=== PATIENT | male | born 1955 | race Hispanic/Latino ===

== ENCOUNTER 2017-10-23 20:34 | Emergency (ER) | payer OTHER ==
[~2017-10-23] VITALS: Ht 180.3 cm; Wt 97.1 kg
--- NOTE | 2017-10-23 21:02 | ED AMS/SEIZURE/WEAK/DIZZY ---
History of Present Illness General Chief Complaint: General Adult Stated Complaint: "DONT FEEL GOOD BLOOD PRESSURE 114/71" Source: patient Exam Limitations: no limitations Vital Signs & Intake/Output Vital Signs & Intake/Output Vital Signs Date Time Temp Pulse Resp B/P B/P Pulse O2 O2 Flow FiO2 Mean Ox Delivery Rate 10/23 2134 98.3 72 18 117/72 98 Room Air 10/23 2036 99.4 72 18 131/87 95 Room Air Allergies Coded Allergies: No Known Allergies (10/23/17) Reconcile Medications Ondansetron HCl (Zofran) 4 MG TABLET 1 TAB PO Q6-8P PRN NAUSEA Triage Note: PT TO TRIAGE C/O LEG HEAVINESS AND GENERALLY "NOT FEELING WELL." PT STATES DOCTOR CHANGED BP MEDICATIONS LAST WEEK. TAKES AMLODIPINE AND LISINOPRIL. PT NORMOTENSIVE IN TRIAGE. Triage Nurses Notes Reviewed? 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 Patient states that he was able to tolerate p.o. today Patient states that last week was advised to increase his dose of amlodipine from 5 mg to 10 mg denies any other new medications taken Has associated symptoms of tactile fevers Denies any headache neck pain sore throat ear pain cough chest pain arm pain jaw pain abdominal pain or change in frequency of urination or testicular pain or swelling. Denies any recent tick bites or rash Denies any similar sick contacts (John Ayala) Past History Travel History Traveled to [place] past 21 day No Medical History Any Pertinent Medical History? see below for history Neurological: NONE EENT: NONE Cardiovascular: hypertension, hyperlipidemia Respiratory: NONE Gastrointestinal: GERD Hepatic: NONE Renal: NONE Musculoskeletal: NONE Psychiatric: NONE Endocrine: NONE Blood Disorders: NONE Cancer(s): NONE ORE SAMPLER/Reproductive: NONE Other Medical Hx: CVA Surgical History Surgical History: non-contributory Psychosocial History What is your primary language Uzbek Tobacco Use: Never used ETOH Use: denies use Family History Hx Contributory? No (John Ayala) Review of Systems Review of Systems Constitutional: Reports: see HPI, fever, weakness. EENTM: Reports: no symptoms. Respiratory: Reports: no symptoms. Cardiovascular: Reports: no symptoms. GI: Reports: see HPI, nausea. Genitourinary: Reports: no symptoms. Musculoskeletal: Reports: see HPI, muscle pain. Skin: Reports: no symptoms. Neurological/Psychological: Reports: no symptoms. Hematologic/Endocrine: Reports: no symptoms. Immunologic/Allergic: Reports: no symptoms. All Other Systems: Reviewed and Negative (John Ayala) Physical Exam Physical Exam General Appearance: no apparent distress, alert, comfortable Head: atraumatic Eyes: Bilateral: normal appearance, PERRL, EOMI. Ears, Nose, Throat: normal pharynx, normal ENT inspection, hearing grossly normal Neck: normal inspection Respiratory: normal breath sounds, chest non-tender, no respiratory distress Cardiovascular: regular rate/rhythm Gastrointestinal: normal bowel sounds, soft, non-tender Back: normal inspection, no vertebral tenderness Extremities: normal range of motion Neurologic/Psych: no motor/sensory deficits, awake, alert, oriented x 3, normal gait, normal mood/affect Skin: intact, normal color, warm/dry Core Measures ACS in differential dx? No CVA/TIA Diagnosis No Sepsis Present: No Sepsis Focused Exam Completed? No (John Ayala) Progress Differential Diagnosis: arrythmia, anemia, benign positional vertigo, CVA/stroke , dehydration, drug intoxication, encephalitis, electrolyte imbalance, GI bleed, hypoglycemia, hypoxia, intracranial Hem., intracranial mass/tumor, labrynthitis, meningitis, Meniere's disease, migraine MAKI, multiple sclerosis, pneumonia, postural hypotension, presyncope, sepsis, seizure disorder, subarachnoid Hem., UTI/pyelo, vertebrobasilar insuff Plan of Care: Orders Procedure Date/time Status LYME TITRE 10/23 2105 Active MISTAKE 10/23 2102 Active TROPONIN LEVEL 10/23 2102 Complete MAGNESIUM 10/23 2102 Complete COMPREHENSIVE METABOLIC PANEL 10/23 2102 Complete CBC WITHOUT DIFFERENTIAL 10/23 2102 Complete EKG 10/23 2102 Active Laboratory Tests 10/23/172121: Anion Gap 11, Estimated GFR > 60, BUN/Creatinine Ratio 19.1, Glucose 105 H, Calcium 8.8, Magnesium 2.1, Total Bilirubin 0.5, AST 85 H, ALT 96 H, Alkaline Phosphatase 126, Troponin I < 0.01, Total Protein 7.2, Albumin 4.1, Globulin 3.1 , Albumin/Globulin Ratio 1.3, CBC w Diff NO MAN DIFF REQ, RBC 4.21 L, MCV 89.9, MCH 30.5, MCHC 33.9, RDW 14.5, MPV 7.5, Gran % 72.0, Lymphocytes % 14.6 L, Monocytes % 12.7 H, Eosinophils % 0.4, Basophils % 0.3, Absolute Granulocytes 4.0, Absolute Lymphocytes 0.8 L, Absolute Monocytes 0.7 H, Absolute Eosinophils 0, Absolute Basophils 0, Lyme Disease Antibody Pending Patient upon initial presentation had a low-grade fever however unremarkable physical exam findings nontender abdomen and clear lungs auscultation unremarkable ENT exam Patient had negative orthostasis Patient afebrile Patient had unremarkable blood work EKG and troponin. Discussed disposition plan with patient who agrees and has no questions nausea has resolved with Zofran Initial ED EKG: normal intervals, normal p-waves, normal QRS complex (John Ayala) Departure Departure Disposition: HOME OR SELF CARE Condition: Stable Clinical Impression Primary Impression: Dizziness Secondary Impressions: Nausea, Weakness Referrals: Stacia LILLY,Ishaan Felipe (PCP/Family) Additional Instructions: As discussed begin drinking plenty of water for hydration if symptoms worsen or if you develop any new concerning symptom return to emergency room if no better in 2 days follow-up with your doctor begin the prescription of Zofran for nausea. Prescriptions waiting at [facility] Please provide your doctor with copies of blood work provided to YOU IN the emergency room Departure Forms: Customer Survey General Discharge Information Prescriptions: Current Visit Scripts Ondansetron HCl (Zofran) 1 TAB PO Q6-8P PRN NAUSEA #10 TAB (John Ayala) PA/COMMERCIAL ESTIMATOR Co-Sign Statement Statement: ED Attending supervision documentation- [] I saw and evaluated the patient. I have also reviewed all the pertinent lab results and diagnostic results. I agree with the findings and the plan of care as documented in the PA's/COMMERCIAL ESTIMATOR's documentation. [X] I have reviewed the ED Record and agree with the PA's/COMMERCIAL ESTIMATOR's documentation. [] Additions or exceptions (if any) to the PAs/COMMERCIAL ESTIMATOR's note and plan are summarized below: [] (Whit LILLY,Fransisco Camejo)
[2017-10-23 21:33] LABS: ABSOLUTE BASOPHIL COUNT 0 /CUMM (0.0-0.2); ABSOLUTE EOSINOPHIL COUNT 0 /CUMM (0.0-0.7); ABSOLUTE LYMPH COUNT 0.8 /CUMM (1.2-3.4); ABSOLUTE MONOCYTE COUNT 0.7 /CUMM (0.10-0.60); BASOPHIL % 0.3 % (0.0-2.0); EOSINOPHIL % 0.4 % (0-5); HEMATOCRIT 37.9 % (42-52); MEAN CORPUSCULAR HGB 30.5 PG (27.0-31.0); MEAN CORPUSCULAR HGB CONC 33.9 G/DL (33.0-37.0); MEAN CORPUSCULAR VOLUME 89.9 FL (80.0-94.0); MEAN PLATELET VOLUME 7.5 FL (7.4-10.4); PLATELET COUNT 176 /CUMM (130-400); RBC DISTRIBUTION WIDTH 14.5 % (11.5-14.5); RED BLOOD CELL CT 4.21 /CUMM (4.70-6.10); WHITE BLOOD CELL COUNT 5.6 /CUMM (4.8-10.8)
[2017-10-23 21:35] VITALS: BP 117/72
[2017-10-23] MEDS ORDERED: ZOFRAN4 M2 PO (21:52)
== END 2017-10-23 22:24 ==
LOC: ERH 20:34
PROVIDERS: Physician Assistant
DX: R42 Dizziness and giddiness (principal); R11.0 Nausea; R53.1 Weakness
CPT/HCPCS: 86618; 93005; 93010; J3101